=== PATIENT | male | born 1935 | race Caucasian/White ===

== ENCOUNTER 2021-05-19 11:44 | Inpatient (IN) | payer OTHER, MEDICARE ==
[~2021-05-19] VITALS: Ht 180.3 cm; Wt 81.8 kg
--- NOTE | 2021-05-19 12:00 | NUR ---
STROKE RN REJI AT BEDSIDE, PAT AT CT.
[2021-05-19] MEDS ORDERED: iohexol 350MG/ML 100ml bottle IV ONE (12:04)
[2021-05-19 12:14] LABS: BASOPHILS % (AUTO) 0.2 % (0-1); EOSINOPHILS % (AUTO) 0.2 % (0-6); HEMATOCRIT 45.2 % (42.0-52.0); HEMOGLOBIN 15.1 g/dl (14.0-17.9); LYMPHOCYTES # (AUTO) 1.2 X10'3 (1.1-4.8); LYMPHOCYTES % (AUTO) 18.2 % (21-51); MEAN CORPUSCULAR HEMOGLOBIN 30.7 PG (27.0-31.0); MEAN CORPUSCULAR HGB CONC 33.5 g/dL (33.0-36.5); MEAN CORPUSCULAR VOLUME 91.5 FL (78-98); MEAN PLATELET VOLUME 10.8 FL (7.4-10.4); MONOCYTES # (AUTO) 1.8 X10'3 (0-0.9); MONOCYTES % (AUTO) 28.4 % (2-12); NEUTROPHILS # (AUTO) 3.4 X10'3 (1.8-7.7); PLATELET COUNT 67 X10'3 (140-440); RED BLOOD COUNT 4.93 X10'6 (4.70-6.10); RED CELL DISTRIBUTION WIDTH 13.9 % (11.5-14.5); WHITE BLOOD COUNT 6.4 X10'3 (4.5-11.0)
[2021-05-19 12:37] LABS: LARGE PLATELETS MODERATE; PLATELET ESTIMATE DECREASED; TOTAL CELLS COUNTED 100
[2021-05-19 12:38] LABS: BURR CELLS FEW
[2021-05-19 12:41] LABS: APTT 32 SECONDS (22-32)
[2021-05-19 12:43] LABS: ALANINE AMINOTRANSFERASE 20 U/L (12-78); ALBUMIN 4.2 G/DL (3.4-5.0); ALBUMIN/GLOBULIN RATIO 1.2 (1.1-1.5); ALKALINE PHOSPHATASE 79 IU/L (46-116); ANION GAP 6 (8-16); ASPARTATE AMINO TRANSFERASE 12 U/L (10-37); BILIRUBIN,TOTAL 0.7 MG/DL (0.1-1.0); BLOOD UREA NITROGEN 15 MG/DL (7-18); BUN/CREATININE RATIO 13.3 (5.4-32.0); CALCIUM 8.8 MG/DL (8.5-10.1); CHLORIDE 106 MMOL/L (99-107); CREATININE 1.13 MG/DL (0.60-1.10); GLUCOSE 90 MG/DL (70-104); POTASSIUM 4.4 MMOL/L (3.5-5.1); SODIUM 139 MMOL/L (135-145); TOTAL CARBON DIOXIDE 26.9 MMOL/L (24-32); TOTAL PROTEIN 7.8 G/DL (6.4-8.2); eGFR 62 ML/MIN
--- NOTE | 2021-05-19 12:56 | NUR ---
STROKE RN LEFT, SYMPTOMS RESOLVED, TELE RECOMMENDED MRI.
[2021-05-19] MEDS: normal saline 1000ml 1,000 ML IV SCH (14:15)
[2021-05-19] MEDS: clopidogrel 75mg tablet PO SCH (14:15)
[2021-05-19] MEDS: aspirin 81mg, enteric-coated 1 TAB TABLET.DR PO SCH (14:15)
[2021-05-19] MEDS ORDERED: ondansetron/PF 4mg/2ml inj IV PRN (14:20)
[2021-05-19] MEDS ORDERED: acetaminophen 325mg tablet PO PRN ×2 (14:20)
[2021-05-19 14:43] LABS: HEMOGLOBIN A1C 5.8 % (4.5-6.2)
[2021-05-19] MEDS ORDERED: SIMV-45 PO (15:36)
[2021-05-19] MEDS ORDERED: METO-411 PO (15:36)
[2021-05-19] MEDS ORDERED: POTA-82 PO (15:39)
[2021-05-19] MEDS ORDERED: PANT40TA54 PO (15:39)
--- NOTE | 2021-05-19 16:22 | NUR ---
Yari mercedes in ED - 05/19/21 at 1626 by [facility]AR[facility] PT'S BRYNN SOLIS; DID A HOME COVID TEST WITH PENNIE SOLIS IS COVID NEG
[2021-05-19] MEDS ORDERED: heparin, porcine 5000 units/ml vial SQ SCH (20:00)
--- NOTE | 2021-05-19 20:18 | NUR ---
Spoke with Magu regarding patient passing swallow eval and needing diet order. Order recvd for Heart healthy diet.
[2021-05-19] MEDS ORDERED: temazepam 15mg capsule PO PRN (21:00)
[2021-05-20 00:50] VITALS: BP 162/101
--- NOTE | 2021-05-20 00:50 | NUR ---
PATIENT ADMITTED TO ROOM 355A FROM ER FOR DIPLOPIA ANDLEFT FACIAL WEAKNESS. PLACED COMFORTABLE IN BED. VITAL SIGNS TAKEN AND RECORDED.
[2021-05-20] MEDS: normal saline 1000ml 1,000 ML IV SCH (00:59)
[2021-05-20 01:06] LABS: LYMPHOCYTES # (AUTO) 1.4 X10'3 (1.1-4.8)
[2021-05-20 01:08] LABS: BASOPHILS % (AUTO) 0.2 % (0-1); EOSINOPHILS % (AUTO) 0.3 % (0-6); HEMATOCRIT 42.9 % (42.0-52.0); HEMOGLOBIN 14.1 g/dl (14.0-17.9); LYMPHOCYTES % (AUTO) 22.6 % (21-51); MEAN CORPUSCULAR VOLUME 91.1 FL (78-98); MEAN PLATELET VOLUME 11.1 FL (7.4-10.4); MONOCYTES # (AUTO) 1.6 X10'3 (0-0.9); MONOCYTES % (AUTO) 26.8 % (2-12); NEUTROPHILS % (AUTO) 50.1 % (42-75); PLATELET COUNT 73 X10'3 (140-440); RED BLOOD COUNT 4.71 X10'6 (4.70-6.10); RED CELL DISTRIBUTION WIDTH 13.8 % (11.5-14.5)
[2021-05-20 01:21] LABS: ALANINE AMINOTRANSFERASE 16 U/L (12-78); ALBUMIN 3.7 G/DL (3.4-5.0); ALBUMIN/GLOBULIN RATIO 1.1 (1.1-1.5); ALKALINE PHOSPHATASE 68 IU/L (46-116); ANION GAP 8 (8-16); ASPARTATE AMINO TRANSFERASE 12 U/L (10-37); BILIRUBIN,TOTAL 0.7 MG/DL (0.1-1.0); BLOOD UREA NITROGEN 14 MG/DL (7-18); BUN/CREATININE RATIO 12.3 (5.4-32.0); CALCIUM 8.6 MG/DL (8.5-10.1); CHLORIDE 104 MMOL/L (99-107); CHOL/HDL RATIO 3.7 (0.00-4.99); CHOLESTEROL 137 MG/DL (0-200); CREATININE 1.14 MG/DL (0.60-1.10); GLUCOSE 90 MG/DL (70-104); HDL CHOLESTEROL 37 MG/DL (35-60); LDL CHOLESTEROL 80 MG/DL (50-100); POTASSIUM 3.5 MMOL/L (3.5-5.1); SODIUM 142 MMOL/L (135-145); TOTAL CARBON DIOXIDE 29.9 MMOL/L (24-32); TOTAL PROTEIN 7.2 G/DL (6.4-8.2); TRIGLYCERIDES 123 MG/DL (20-135); eGFR 61 ML/MIN
[2021-05-20 02:41] VITALS: BP 162/101
[2021-05-20 04:00] VITALS: BP 89/62
--- NOTE | 2021-05-20 06:34 | NUR ---
Problems reprioritized. Patient report given, questions answered & plan of care reviewed with EL GREENE.
[2021-05-20 07:34] VITALS: BP 159/91
[2021-05-20] MEDS: clopidogrel 75mg tablet PO SCH (09:19)
[2021-05-20] MEDS: aspirin 81mg, enteric-coated 1 TAB TABLET.DR PO SCH (09:20)
[2021-05-20] MEDS ORDERED: ASPI-1071 PO (10:25)
[2021-05-20] MEDS ORDERED: ATOR10TA PO (10:25)
[2021-05-20] MEDS ORDERED: CLOP75TA34 PO (10:25)
[2021-05-20 11:00] VITALS: BP 137/78
[2021-05-20] MEDS ORDERED: atorvastatin 10mg tablet PO SCH (21:00)
[2021-05-21] MEDS ORDERED: pantoprazole 40mg Tablet.DR PO SCH (08:00)
== END 2021-05-20 13:42 | disposition home or self-care (01) | DRG 66 ==
LOC: ER 11:45 → ED HOLD 14:19 → SUR 3N 05-20 00:45
PROVIDERS: ADMIT Internal Medicine; ATTEND Internal Medicine
PROC: B3251ZZ Computerized Tomography (CT Scan) of Bilateral Common Carotid Arteries using Low Osmolar Contrast (ICD-10-PCS; principal; 2021-05-19)
PROC: B32G1ZZ Computerized Tomography (CT Scan) of Bilateral Vertebral Arteries using Low Osmolar Contrast (ICD-10-PCS; 2021-05-19)
PROC: B32R1ZZ Computerized Tomography (CT Scan) of Intracranial Arteries using Low Osmolar Contrast (ICD-10-PCS; 2021-05-19)
PROC: B3281ZZ Computerized Tomography (CT Scan) of Bilateral Internal Carotid Arteries using Low Osmolar Contrast (ICD-10-PCS; 2021-05-19)
DX: I63.9 Cerebral infarction, unspecified (principal); D69.6 Thrombocytopenia, unspecified; E78.00 Pure hypercholesterolemia, unspecified; E78.5 Hyperlipidemia, unspecified; G47.30 Sleep apnea, unspecified; R29.701 NIHSS score 1; I49.5 Sick sinus syndrome; K21.9 Gastro-esophageal reflux disease without esophagitis; N18.30 Chronic kidney disease, stage 3 unspecified; K57.90 Diverticulosis of intestine, part unspecified, without perforation or abscess without bleeding; I12.9 Hypertensive chronic kidney disease with stage 1 through stage 4 chronic kidney disease, or unspecified chronic kidney disease; Z79.02 Long term (current) use of antithrombotics/antiplatelets; Z79.82 Long term (current) use of aspirin; Z79.899 Other long term (current) drug therapy; Z95.0 Presence of cardiac pacemaker
CPT/HCPCS: 36415; 70450; 70496; 70498; 71045; 80053; 80061; 83036; 84484; 85007; 85025; 85610; 85651; 85730; 87081; 92508; 92616; 93005; 93880; 99285; G0378; J1644; J7030; Q9967

== ENCOUNTER 2025-02-04 09:05 | Emergency (ER) | payer OTHER, MEDICARE ==
[~2025-02-04] VITALS: Ht 182.9 cm; Wt 81.0 kg
[~2025-02-04 09:05] MED LIST: ASPI-1071 PO; ATOR10TA PO; CLOP75TA34 PO; METO-411 PO; PANT40TA54 PO
--- NOTE | 2025-02-04 09:28 | ELECTROCARDIOGRAPH REPORT ---
[facility] Test Date: 2025-02-04 Test Time: 09:24:55 Pat Name: TATI CHRISTIANSON Department: [facility]-ER Patient ID: [facility]-[id number] Room: Gender: M Harness Inspector: : [id number] Requested By: NOELLE MANNING Order Number: [id number] Reading MD: Dr. Noelle Manning Measurements Intervals Haskell Rate: 70 P: -10 ND: 162 QRS: 112 QRSD: 116 T: -66 QT: 537 QTc: 580 Interpretive Statements Atrial-paced complexes Ventricular premature complex Left posterior fascicular block Low voltage, precordial leads Nonspecific T abnormalities, inferior leads Electronically Signed On 02-04-2025 11:01:[address] Noelle Manning Please click the below link to view image of tracing.
[2025-02-04 09:38] LABS: MEAN PLATELET VOLUME 10.8 FL (7.4-10.4); RED CELL DISTRIBUTION WIDTH 16.4 % (11.5-14.5)
--- NOTE | 2025-02-04 09:48 | RADIOLOGY REPORT ---
CHEST RADIOGRAPH Indication: CP Technique: Single frontal view of the chest was obtained COMPARISON: CHEST,SINGLE VIEW on DOS: 05/19/21 FINDINGS: Lines and Tubes: Left chest wall pacemaker Lungs: Patchy bilateral lower lobe airspace disease Pleura: No effusion. No pneumothorax. Cardiomediastinal contours: Unremarkable Bones: Unremarkable IMPRESSION: Patchy bilateral lower lobe airspace disease.
[2025-02-04 10:00] LABS: CREATININE 0.90 MG/DL (0.60-1.10); PRO BRAIN NATRIURETIC PEPTIDE 109 PG/ML (0-450); TOTAL CARBON DIOXIDE 28.7 MMOL/L (24-32); eCRCL 63 ML/MIN; eGFR 80 ML/MIN
[2025-02-04 10:03] LABS: LYMPHOCYTES % (MANUAL) 11.0 % (21-51); MONOCYTES % (MANUAL) 18.0 % (2-12); NEUTROPHILS % (MANUAL) 71.0 % (42-75)
[2025-02-04 10:05] LABS: PLATELET ESTIMATE DECREASED
[2025-02-04 10:06] LABS: LARGE PLATELETS FEW
--- NOTE | 2025-02-04 11:57 | Physician Documentation ---
History of Present Illness ~ Chief Complaint: Dizziness Stated Complaint: DIZZINESS UPON STANDING Time Seen by MD: 11:43 Mode of Arrival: EMS, Stretcher W[place]ATT This 89-year-old male presents to the ED with a complaint of three days of dizziness when he stands up. States he does have a history of emphysema. He does not report any increased shortness of breath or chest pain. Denies any falls. Medication Reconciliation Allergies: Coded Allergies: No Known Allergies (Unverified , 02/04/25) Scheduled Amoxicillin Trihydrate* (Amoxicillin*), 1 CAP PO Q8H Aspirin (Ecotrin*), 1 TAB PO DAILY Atorvastatin Calcium (Lipitor), 40 MG PO HS Clopidogrel Bisulfate (Clopidogrel), 75 MG PO DAILY Metoprolol Succinate (Metoprolol Succinate), 1 TAB PO DAILY, (Reported) Pantoprazole Sodium (Pantoprazole Sodium), 1 TAB PO DAILY, (Reported) Past Medical History Past Medical History: Arrhythmia, High Cholesterol, Hypertension, Sleep Apnea, Diverticulosis, GERD, Hemorrhoids Past Surgical History: pacemaker Lives In: Home Physical Exam Vital Signs: Temperature: 97.4, Source: Oral, Heart Rate: 83, Respiratory Rate: 16, BP: 167/103, Pulse Oximetry: 97, Weight: 81.000 Oxygen Flow Rate: 0 Progress Progress Note Nursing staff performed ear lavage on the patient's right ear. States they were able to extract a large amount of cerumen. However the patient reported increased pain and bleeding from the site. Upon further investigation the tympanic membrane appears fully ruptured. Dr. Singh also assisted with the examination and he is concerned about a full rupture of the tympanic membrane. At this time we are requesting ENT consult Results/Orders Results/Orders Orders - JENIFER ALVAREZ 3RD MATE Ct Head (02/04/25 11:30) Straight Cath For Urine Sample (02/04/25 11:57) Remove Impacted Ear Wax Uni (02/04/25 ) Completed Orders - JENIFER ALVAREZ [address]RD MATE Ct Head (02/04/25 11:30) * Orthostatic Vitals* Q12H (02/04/25 11:55) Ua W/Microscopic, Cult If Ind (02/04/25 12:03) Vital Signs 02/04/25 02/04/25 02/04/25 02/04/25 09:05 09:36 09:58 11:17 Temp 97.4 97.4 Pulse 102 73 83 Resp 12 15 16 16 B/P (MAP) 144/84 149/85 (106) 167/103 (124) Pulse Ox 96 98 97 O2 Flow Rate 0 0 0 02/04/25 02/04/25 02/04/25 02/04/25 12:02 12:04 13:12 14:47 Temp 97.4 97.4 Pulse 75 80 71 78 92 Resp 18 16 B/P (MAP) 156/84 145/87 (106) 144/82 (102) 147/86 124/77 Pulse Ox 95 96 O2 Flow Rate 0 0 02/04/25 02/04/25 16:06 16:09 Temp 97.4 Pulse 72 63 Resp 18 16 B/P (MAP) 132/84 132/64 (86) Pulse Ox 95 95 O2 Flow Rate 0 Laboratory Tests Test 02/04/25 08:26 02/04/25 09:26 02/04/25 11:00 02/04/25 12:03 Sodium Level 139 Potassium Level 3.3 L Chloride Level 103 Carbon Dioxide Level 28.7 Anion Gap 7 L Blood Urea Nitrogen 9 Creatinine 0.90 Estimated GFR/1.73 m2 80 BUN/Creatinine Ratio 10.0 Glucose Level 99 Calcium Level 8.6 Pro-B-Type Natriuretic Peptide 109 Albumin 3.9 Chemistry Comments White Blood Count 9.8 Red Blood Count 5.03 Hemoglobin 15.1 Hematocrit 44.8 Mean Corpuscular Volume 89.0 Mean Corpuscular Hemoglobin 29.9 Mean Corpuscular Hemoglobin Concent 33.6 Red Cell Distribution Width 16.4 H Platelet Count 59 L Mean Platelet Volume 10.8 H Neutrophils (%) (Auto) 64.5 Lymphocytes (%) (Auto) 8.6 L Monocytes (%) (Auto) 26.4 H Eosinophils (%) (Auto) 0.3 Basophils (%) (Auto) 0.2 Neutrophils # (Auto) 6.3 Lymphocytes # (Auto) 0.8 L Monocytes # (Auto) 2.6 H Eosinophils # (Auto) 0.0 Basophils # (Auto) 0.0 CBC Comment Differential Total Cells Counted 100 Neutrophils % (Manual) 71.0 Lymphocytes % (Manual) 11.0 L Monocytes % (Manual) 18.0 H Platelet Estimate Decreased Large Platelets Few Red Blood Cell Morphology Perf Basophilic Stippling Anisocytosis 1+ Troponin I High Sensitivity 6 7 Troponin I High Sens Percent Delta 16 Troponin I Hi Sens Absolute Change 1 Urine Specimen Description Urinal Urine Color Yellow Urine Clarity Clear Urine pH 7.5 Urine Specific Warren 1.020 Urine Protein Trace Urine Glucose (UA) Negative Urine Ketones Negative Urine Occult Blood Negative Urine Nitrite Negative Urine Bilirubin Negative Urine Urobilinogen 0.2 Urine Leukocyte Esterase Negative Urine RBC 0-2 Urine WBC 0-4 Urine Squamous Epithelial Cells None seen Urine Bacteria Few Urine Mucus Few Urine Culture Indicated Not ind Volume Urine Centrifuged 10 ml Urine Comment Medical Decision Making Additional information obtaine: N/A Findings Patient was evaluated for dizziness via CT which showed no intracranial abnormalities other than normal aging signs. Lab labs look good and show no signs of infectious processes. Per my interpretation his x-ray is unremarkable other than showing signs of ongoing COPD. Ortho stats were appropriate. His urinalysis was negative for any UTIs. Suspect his dizziness may be related to worsening COPD which he needs to follow up with his primary care for further evaluation of Additionally I evaluated his ears and his right ear was grossly impacted with cerumen which also could be contributing to his dizziness. Had the nursing staff irrigate his ear and advise him to regularly clean his ears to keep them clear of obstruction I contacted the Ear Nose Throat doctor Sapna. His office informed me that they would be happy to see him today for evaluation of the suspected ruptured tympanic membrane Differential Dx:Considerations: Include: anemia, CVA, dehydration, dysrhythmia, electrolyte imbalance, encephalopathy, Guillain-Cumming, hypoglycemia, hypotension, hypovolemia, labyrinthitis, Meniere's disease, myasathenia gravis, myocardial infarction, pulmonary embolus, renal failure, respiratory failure, TIA, VBI, vertigo central, vertigo peripheral, vestibular neuronitis, other Departure Disposition: HOME / SELF CARE / HOMELESS Impression: Primary Impression: Dizziness Additional Impressions: COPD (chronic obstructive pulmonary disease) Cerumen impaction Discharge Instructions: Chronic Obstructive Pulmonary Disease Exacerbation, Oply-og-Gewu, Dizziness Additional Instructions: Please proceed toDr. Alejo's office for evaluation Referrals: NO PRIMARY CARE PROVIDER (PCP) BOWEN ALEJO MD Prescriptions Amoxicillin Trihydrate* (Amoxicillin*) 500 Mg Capsule 1 CAP PO Q8H for 10 Days, #30 CAP Prov: JENIFER AVLAREZ 3RD MATE 10/27/25 Education Educated: Patient Educated regarding: diagnosis Signature Scribe Signature: g Attestation: Scribed for Jenifer Alvarez Activities Officer by Jenifer Mccord NP . 02/04/25 12:40 JENIFER ALVAREZ NP Feb 04, 2025 11:57
--- NOTE | 2025-02-04 12:01 | RADIOLOGY REPORT ---
CT CT HEAD Indication: Dizziness EXAM DATE: 02/04/2025 11:37 AM COMPARISON: CT STROKE ALERT on DOS: 05/19/21 TECHNIQUE: CT of the head without intravenous contrast. RADIATION DOSE: CTDIvol: 62 mGy, DLP: 1160 mGy*cm FINDINGS: There is no intracranial hemorrhage. There is no extra-axial fluid, mass, mass effect or midline shift. The ventricles are midline and normal in size. Basilar cisterns are patent. There are moderate periventricular and subcortical white matter chronic microvascular ischemic changes. Mild global cerebral volume loss. The paranasal sinuses and mastoids are well-pneumatized. Imaged portion of the orbits are unremarkable. IMPRESSION: No intracranial hemorrhage or mass effect. Moderate chronic microvascular ischemic changes. Mild global cerebral volume loss
[2025-02-04 12:17] LABS: LEUKOCYTE ESTERASE ,URINE NEGATIVE (Neg); NITRITES, URINE NEGATIVE (Neg); OCCULT BLOOD,URINE NEGATIVE (Neg)
[2025-02-04 12:21] LABS: UA COLLECTION TYPE URINAL
[2025-02-04 12:28] LABS: MUCUS STRANDS FEW /LPF (Neg); SQUAMOUS EPITHELIAL CELL,UR NONE SEEN /LPF (FEW)
[2025-02-04] MEDS ORDERED: CARB15DR91 RIGHT EAR (12:52)
[2025-02-04] MEDS ORDERED: AMOX500C2 PO (15:45)
[2025-02-04 16:09] VITALS: BP 132/64; PULSE 63; RESP 16; TEMP 97.4; O2SAT 95
== END 2025-02-04 16:08 | disposition home or self-care (01) ==
LOC: ER 09:05
DX: R42 Dizziness and giddiness (principal); H61.21 Impacted cerumen, right ear; I10 Essential (primary) hypertension; G47.30 Sleep apnea, unspecified; E78.00 Pure hypercholesterolemia, unspecified; K21.9 Gastro-esophageal reflux disease without esophagitis; Z87.19 Personal history of other diseases of the digestive system; J43.9 Emphysema, unspecified; Z95.0 Presence of cardiac pacemaker; Z79.82 Long term (current) use of aspirin; Z79.899 Other long term (current) drug therapy
CPT/HCPCS: 36415; 69209; 70450; 71045; 80048; 81001; 83880; 84484; 85007; 85025; 93005; 99285